=== PATIENT | female | born 1990 | race Caucasian/White ===

== ENCOUNTER 2017-02-10 08:55 | Emergency (ER) | payer MEDICAID, OTHER ==
[~2017-02-10] VITALS: Ht 157.5 cm; Wt 59.4 kg
[2017-02-10 09:00] VITALS: Ht 157.5 cm; Wt 59.4 kg
[2017-02-10 09:43] LABS: URINE BLOOD (Dip) POC 2+ (NEGATIVE)
--- NOTE | 2017-02-10 10:07 | RADRPT ---
PROCEDURE: US Pelvis. CLINICAL INDICATION: pelvic pain TECHNIQUE: Multiple sonographic images of the pelvis were obtained utilizing a transabdominal and endovaginal technique. The images were reviewed on a PACS workstation. COMPARISON: 06/07/2013 FINDINGS: The uterus is normal in size with a normal appearance of the myometrium. The uterus measures 7.3 x 4.3 x 5.3 cm. The endometrial stripe is homogeneous in appearance and has the thickness of 18 mm. The ovaries are normal in size and echogenicity. Normal Doppler flow is identified in both ovaries. The right ovary measures 2.9 x 1.8 x 1.8 cm. The left ovary measures 2.5 x 1.6 x 1.8 cm. There is a small amount of free fluid in the pelvis. RPTAT: AA IMPRESSION: Small amount of free fluid in the pelvis. Slightly thickened endometrium. Otherwise unremarkable. .Tato Antonio MD, MD Date Time Electronically viewed and signed by .Tato Antonio MD, MD on 02/10/2017 10:07 .S/
--- NOTE | 2017-02-10 10:53 | RADRPT ---
PROCEDURE: XR Lumbar Spine. CLINICAL INDICATION: Lumbar spine pain. TECHNIQUE: AP, lateral, and cone-down lateral view of the lumbar spine were obtained. COMPARISON: No prior studies are available for comparison. FINDINGS: The alignment of the lumbar spine is within normal limits. There are chronic limbus deformities inv olving the anterior L3, 4 and L5 vertebral bodies are related to remote prior injury The vertebral b [place] and marrow density are normal in appearance. There is preservation of the intervertebra l disc spaces. There is no significant facet spondylosis. The neural foramina appear patent. The paraspinal soft tissues unremarkable. IMPRESSION: 1. 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 2. No evidence of acute fracture or significant degenerative disc disease. RPTAT: HGAS .Jacky Atkinson MD, Date Time Electronically viewed and signed by .Jacky Atkinson MD, on 02/10/2017 10:53 .S/
[2017-02-10] MEDS ORDERED: IBUP-1542 PO (11:36)
[2017-02-10] MEDS ORDERED: NITR-58 PO (11:36)
[2017-02-10 11:46] VITALS: BP 116/66; RESP 18; TEMP 98.1
--- NOTE | 2017-02-10 11:47 | ERD ---
ER Documentation Chief Complaint Date/Time DATE: 02/10/17 TIME: 11:44 Chief Complaint dysuria, wants to have check for cyst on ovarry , was told at the clinic HPI This is a 26-year-old female presents to the ER with urinary frequency and dysuria for the last 2 days. Patient states she went to her doctor and got a Pap smear done yesterday, her tire service technician told her that her uterus felt to bag and that she should come to the ER for an ultrasound. Patient does admit to hematuria. She denies any fevers or chills. She denies any flank pain. Patient however is complaining of lower back pain which has been going on over the last few months. She denies any trauma she denies any urinary bowel incontinence. She denies any saddle like anesthesia. She does admit to some pelvic pain. She admits to pain after sexual intercourse. She denies any vaginal discharge. Patient is currently sexually active with her and uses condoms. A1 her last normal menstrual period was February 01, 2017. ROS 12 point review of systems was done, all negative except per HPI. Medications Home Meds Active Scripts Nitrofurantoin Monohyd Macrocr* (Macrobid*) 100 Mg Capsr, 100 MG PO BID for 7 Days, CAP Prov:KAIT,STU C 02/10/17 Ibuprofen* (Motrin*) 600 Mg Tab, 600 MG PO Q6, #30 TAB Prov:KAIT,STU C 02/10/17 Allergies Allergies: Coded Allergies: No Known Allergy (Unverified , 02/10/17) PMhx/Soc History of Surgery: Yes (c section ) Anesthesia Reaction: No Hx Neurological Disorder: No Hx Respiratory Disorders: No Hx Cardiac Disorders: No Hx Psychiatric Problems: No Hx Miscellaneous Medical Probl: No Hx Alcohol Use: No Hx Substance Use: No Hx Tobacco Use: No Smoking Status: Never smoker Physical Exam Vitals Vital Signs Date Time Temp Pulse Resp B/P Pulse Ox O2 Delivery O2 Flow Rate FiO2 02/10/17 09:00 98.1 79 18 110/65 99 Physical Exam GENERAL: The patient is well developed and appropriate for usual state of health , in no apparent distress. HEENT: Atraumatic. CHEST: Clear to auscultation bilaterally. There are no rales, wheezes or rhonchi. HEART: Regular rate and rhythm. No murmurs, clicks, rubs or gallops. ABDOMEN: Soft, nontender and nondistended. Good bowel sounds. No rebound or guarding. No gross peritonitis. No gross organomegaly or masses. No Rader sign or McBurney point tenderness. BACK: No midline or flank tenderness. NEURO: Alert and oriented. SKIN: The skin is warm and dry. Results 24 hrs Laboratory Tests Test 02/10/17 09:44 Bedside Urine pH (LAB) 6.0 Bedside Urine Protein (LAB) 1+ Bedside Urine Glucose (UA) Negative Bedside Urine Ketones (LAB) 1+ Bedside Urine Blood 2+ Bedside Urine Nitrite (LAB) Negative Bedside Urine Leukocyte Esterase (L Negative Procedures/MDM Differential diagnosis includes but is not limited to; UTI, pyelonephritis, ovarian torsion, ovarian cyst, endometriosis, pelvic inflammatory disease, STI. This is a 26-year-old female presents to the ER with urinary frequency and dysuria. Patient appears to be very symptomatic and will be treated secondary to her symptoms. Suspicion for pyelonephritis is low. Patient does not have any evidence of ovarian cyst or ovarian torsion. Suspicion for pelvic inflammatory disease or STI as well as patient has denied any vaginal discharge. Patient is to follow-up with her primary care doctor within 1-2 days or return to ER sooner if symptoms worsen. My medical decision making was shared with the patient she understands and agrees with plan. Departure Diagnosis: Primary Impression: Dysuria Condition: Stable Patient Instructions: Dysuria Additional Instructions: Call your primary care doctor TOMORROW for an appointment during the next 1-2 days.See the doctor sooner or return here if your condition worsens before your appointment time. STU CARBALLO February 10, 2017 11:47
== END 2017-02-10 11:46 | disposition home or self-care (01) ==
LOC: FTE 08:55
DX: R30.0 Dysuria (principal); R10.2 Pelvic and perineal pain
CPT/HCPCS: 72100; 76830; 76856; 81003; Z7502